=== PATIENT | female | born 1975 | race Caucasian/White ===

== ENCOUNTER 2023-02-18 06:53 | Outpatient (OUT) | payer BC, SELFPAY ==
[2023-02-18 07:15] LABS: Basophils Absolute Auto 0.1 10^3/uL (0.0-0.1); Basophils Percent Auto 1.1 % (0.2-2.0); Eosinophils Absolute Auto 0.2 10^3/uL (0.0-0.7); Eosinophils Percent Auto 4.2 % (0.9-7.0); Hematocrit 42.7 % (36.0-48.0); Hemoglobin 14.1 g/dL (12.0-16.0); Immature Granulocytes Abs Auto 0.01 10^3/uL (0.00-0.03); Immature Granulocytes Pct Auto 0.2 % (0.0-0.5); Lymphocytes Absolute Auto 2.5 10^3/uL (1.2-3.8); Lymphocytes Percent Auto 46.8 % (20.5-60.0); Mean Corpuscular Hemoglobin 30.4 pg (26.7-34.0); Mean Platelet Volume 10.3 fL (9.5-13.5); Monocytes Absolute Auto 0.5 10^3/uL (0.3-0.8); Monocytes Percent Auto 10.1 % (1.7-12.0); Neutrophils Percent Auto 37.6 % (43.0-75.0); Platelet Count 259 10^3/uL (150-450); Red Blood Count 4.64 10^6/uL (4.20-5.40); Red Cell Distribution Width 12.8 % (11.0-15.0); White Blood Count 5.2 10^3/uL (4.0-11.0)
[2023-02-18 09:13] LABS: Alanine Aminotransferase 26 U/L (14-59); Albumin Level 4.3 g/dL (3.4-5.0); Alkaline Phosphatase 61 U/L (46-116); Anion Gap 11.6; BUN Creatinine Ratio 16.7; Bilirubin Total 0.8 mg/dL (0.2-1.0); Calcium 9.5 mg/dL (8.5-10.1); Carbon Dioxide 27.6 mmol/L (21.0-32.0); Chloride 100 mmol/L (98-107); Chol HDL Ratio 3.8; Cholesterol 320 mg/dL (<=200); Estimated GFR (African America >60 (>=60); Estimated GFR (Non-African Ame >60 (>=60); Globulin 4.2 g/dL; Glucose 80 mg/dL (74-106); HDL Cholesterol 84 mg/dL (40-60); Sodium 135 mmol/L (136-145); Thyroid Stimulating Hormone 1.599 uIU/mL (0.358-3.740); Total Protein 8.5 g/dL (6.4-8.2); Triglycerides 100 mg/dL (<=150)
[2023-02-18 09:18] LABS: Aspartate Amino Transferase 39 U/L (15-37); Potassium 4.2 mmol/L (3.5-5.1)
[2023-02-18 09:24] LABS: Estimated Average Glucose 91 mg/dL; Glycohemoglobin A1C 4.8 % (4.5-6.2)
== END 2023-02-18 06:54 | disposition home or self-care (01) ==
LOC: LAB 06:58
PROVIDERS: PCP Internal Medicine; Visit Provider Obstetrics & Gynecology
DX: Z00.00 Encounter for general adult medical examination without abnormal findings (principal)
CPT/HCPCS: 36415; 80053; 80061; 83036; 84443; 85025

== ENCOUNTER 2023-08-12 21:07 | Outpatient (REF) | payer BC, SELFPAY ==
[2023-08-16 08:10] LABS: Age Gdln ACOG Testing Note (.); HPV Aptima Negative (Negative); IGP, Aptima HPV, rfx 16/18,45 Note (.)
== END 2023-08-12 21:08 | disposition home or self-care (01) ==
LOC: LAB 21:07
PROVIDERS: PCP Internal Medicine; Visit Provider Physician Assistant
DX: Z01.419 Encounter for gynecological examination (general) (routine) without abnormal findings (principal)
CPT/HCPCS: G0145

== ENCOUNTER 2023-09-06 14:10 | Outpatient (OUT) | payer BC, SELFPAY ==
--- NOTE | 2023-09-06 14:13 | MM_ITS ---
Patient Name: MIKE SY MR#: [id number] : 1975 Exam Date: 09/06/2023 Ordering Doctor: ANNIE Armenta . RADIOLOGY REPORT PROCEDURE: MM TOMOSYNTHESIS SCREENING BI COMPARISON: MG MAMM SCREEN 3D MATILDA CAD, 04/17/2021. MG MAMM SCREEN 3D MATILDA CAD, 06/22/2022. INDICATIONS: screening Calculator Name NCI Breast Cancer Risk Assessment Tool 5 Year Breast Cancer Risk 1.30% Lifetime Breast Cancer Risk 11.60% Personal Breast Cancer No Personal Ovarian Cancer No Treatments None Family Cancers None LOCATION: [facility] BREAST COMPOSITION: Extremely dense, which lowers the sensitivity of mammography. FINDINGS: DIAGNOSTIC CATEGORY 1--NEGATIVE. NO CHANGE FROM COMPARISON ASSESSMENT. Scattered benign-appearing lymph nodes are present. RIGHT BREAST: No significant suspicious finding. Linear scar marker lower inner quadrant LEFT BREAST: No significant suspicious finding. RECOMMENDATIONS: ROUTINE MAMMOGRAM AND CLINICAL EVALUATION IN 12 MONTHS. PLEASE NOTE: A NORMAL MAMMOGRAM DOES NOT EXCLUDE THE POSSIBILITY OF BREAST CANCER. A CLINICALLY SUSPICIOUS PALPABLE LUMP SHOULD BE BIOPSIED. Dictated by: Brandan Razo MD on 09/10/2023 at 07:36 Approved by: Brandan Razo MD on 09/10/2023 at 07:37
--- OUTSIDE RECORDS SUMMARY | 2023-09-06 14:17 | XMS_ITS | CCD ---
Author Organization [facility] Care Team Providers Care Digital Librarian Name Role Phone VIRY, DR HARRELL Primary Care Unavailable JOSE EDUARDO BOSS Attending Unavailable JOSE EDUARDO BOSS Admitting Unavailable ALEXANDRO COULTER Consulting Unavailable JOSE EDUARDO BOSS Consulting Unavailable ALEXANDRO COULTER Consulting Unavailable DAWNA LIZAMA Attending Unavailable DAWNA LIZAMA Admitting Unavailable VIRY, DR HARRELL Primary Care Unavailable DAWNA LIZAMA Consulting Unavailable ALEISHA ., DR MEYERS Attending Unavailabl e KARKOREY ., DR MEYERS Admitting Unavailabl e KARTATIANNAK ., DR MEYERS Consulting Unavailabl e VIRY, DR HARRELL Primary Care Unavailable ALEXANDRO COULTER Consulting Unavailable JOSE EDUARDO BOSS Admitting Unavailable BALL, DR HARRELL Primary Care Unavailable JOSE EDUARDO BOSS Attending Unavailable ALEISHA ., DR MEYERS Attending Unavailabl e KARASIK ., DR MEYERS Admitting Unavailabl e VIRY, DR HARRELL Primary Care Unavailable KARKOREY ., DR MEYERS Consulting Unavailronald KEMP, DR ALEENA Montoya Consulting Unavailable VIRY, DR HARRELL Primary Care Unavailable JOSE EDUARDO BOSS Attending Unavailable JOSE EDUARDO BOSS Admitting Unavailable JOSE EDUARDO BOSS Consulting Unavailable VIRIDIANA, DR ALEENA Montoya Consulting Unavailable JOSE EDUARDO BOSS Attending Unavailable VIRY, DR HARRELL Primary Care Unavailable JOSE EDUARDO BOSS Admitting Unavailable JOSE EDUARDO BOSS Consulting Unavailable VIRY, DR HARRELL Primary Care Unavailable JOSE EDUARDO BOSS Attending Unavailable VIRIDIANA, DR ALEENA Montoya Consulting Unavailable JOSE EDUARDO BOSS Admitting Unavailable JOSE EDUARDO BOSS Consulting Unavailable VIRIDIANA, DR ALEENA Montoya Consulting Unavailable DAWNA LIZAMA Attending Unavailable DAWNA LIZAMA Admitting Unavailable VIRY, DR HARRELL Primary Care Unavailable DAWNA LIZAMA Consulting Unavailable MADI PEREZ Attending Unavailable Problems Active Problems Problem Classification Problem Date Documented Date Episodic/Chronic Immunizations and screening for infectious disease (1 source) Encounter for screening for human papillomavirus (HPV); Translations: [ENC SCREENING HUMAN PAPILLOMAVIRUS] Onset: 06-23-2022 Episodic Other screening for suspected conditions (not mental disorders or infectious disease) (8 sources) Encounter for screening mammogram for malignant neoplasm of breast; Translations: [Encounter for screening for malignant neoplasm of cervix] Onset: 06-19-2022 Episodic Past or Other Problems Problem Classification Problem Date Documented Date Episodic/Chronic Fracture of lower limb (5 sources) Displaced fracture of body of right calcaneus, subsequent encounter for fracture with routine healing; Translations: [DSPL FX BODY RT CALCAN SUB FX RTN] Onset: 09-15-2021 Episodic Malaise and fatigue (1 source) Weakness; Translations: [WEAKNESS] Onset: 09-15-2021 Episodic Other connective tissue disease (5 sources) Pain in right foot; Translations: [PAIN IN RIGHT FOOT] Onset: 10-04-2021 Episodic Other connective tissue disease (1 source) Abnormal posture; Translations: [ABNORMAL POSTURE] Onset: 09-15-2021 Episodic Other nervous system disorders (1 source) Other abnormalities of gait and mobility; Translations: [OTHER ABNORMALITIES GAIT AND MOBILITY] Onset: 09-15-2021 Episodic Other nervous system disorders (1 source) Unspecified abnormalities of gait and mobility; Translations: [UNS ABNORMALITIES GAIT AND MOBILITY] Onset: 09-15-2021 Episodic Other non-traumatic joint disorders (4 sources) Pain in right ankle and joints of right foot; Translations: [PAIN IN RIGHT ANKLE] Onset: 03-28-2022 Episodic Residual codes; unclassified (4 sources) Other specified postprocedural states; Translations: [OTH SPECIFIED POSTPROCEDURAL STATES] Onset: 09-12-2021 Episodic Results Test Name Value Interpretation Reference Range Facil ity PAP ACOG PANEL 2: 30 to 65on 06-24-2022 . . Normal [facility] Comment on above: Result Comment: Perf ormed at: WB Performed By: #### [id number] #### [facility] [address] [address] [address] Armin Pereira Age Gdln ACOG Testing 30-65 Normal [facility] Comment on above: Performed By: #### [id number] #### [facility] [address] [place] [address] Dr. Armin Pereira DIAGNOSIS: Comment Normal [facility] Comment on above: Result Comment: NEGA TIVE FOR INTRAEPITHELIAL LESION OR MALIGNANCY. CELLULAR CHANGES ASSOCIATED WITH INFLAMMATION ARE PRESENT. Performed at: WB Performed By: #### [id number] #### [facility] [address] [place] [address] Dr. Armin Pereira HPV Aptima Negative Normal Negative [facility] Comment on above: Result Comment: This nucleic acid amplification test detects fourteen high-risk HPV types (16,18,31,33,35,39,45,51,52,56,58,59,66,68) without differentiation. Performed at: =G Performed By: #### [id number] #### [facility] [address] [place] [address] Dr. Armin Pereira HPV Genotype Reflex Comment Normal [facility] Comment on above: Result Comment: Crit eria not met, HPV Genotype not performed. Performed at: WB Performed By: #### [id number] #### [facility] [address] [place] [address] Dr. Armin Pereira Methodology: Comment Normal [facility] Comment on above: Result Comment: This liquid based ThinPrep(R) pap test was screened with the use of an image guided system. Performed at: WB Performed By: #### [id number] #### [facility] [address] [place] [address] Dr. Armin Pereira Note: Comment Normal [facility] Comment on above: Result Comment: The Pap smear is a screening test designed to aid in the detection of premalignant and malignant conditions of the uterine cervix. It is not a diagnostic procedure and should not be used as the sole means of detecting cervical cancer. Both false-positive and false-negative reports do occur. . Performed at: WB Performed By: #### [id number] #### [facility] [address] [place] [address] Dr. Armin Pereira Performed by: Comment Normal [facility] Comment on above: Result Comment: Samia Love Lpn Or Medical Assistant (ASCP) Performed at: WB Performed By: #### [id number] #### [facility] [address] [address] [address] Armin Pereira Specimen adequacy: Comment Normal [facility] Comment on above: Result Comment: Sati sfactory for evaluation. Performed at: WB Performed By: #### [id number] #### [facility] [address] [address] [address] Armin Pereira MG MAMM SCREEN 3D MATILDA CADon 06-22-2022 MG MAMM SCREEN 3D MATILDA CAD Patient: MIKE ARMENDARIZ Exam Date: 06/22/2022 : 1975 Gender:F Ordering : DR MIRA MORAES . Admission #: [id number] Family : Order #: [id number] CLICK HERE TO VIEW EXAM RADIOLOGY REPORT PROCEDURE: MAMMOGRAM SCREENING 3D BILATERAL CAD COMPARISON: MG MAMM SCREEN MATILDA W CAD, 04/15/2020. MG MAMM SCREEN MATILDA W CAD, 03/11/2019. MG MAMM MATILDA DIAG W CAD DIG, 01/30/2006. MG MAMM SCREEN 3D MATILDA CAD, 04/17/2021. INDICATIONS: Screening mammography Calculator Name NCI Breast Cancer Risk Assessment Tool 5 Year Breast Cancer Risk 1.30% Lifetime Breast Cancer Risk 11.80% Personal Breast Cancer No Personal Ovarian Cancer No Treatments None Family Cancers None LOCATION: [facility] BREAST COMPOSITION: Extremely dense, which lowers the sensitivity of mammography. FINDINGS: DIAGNOSTIC CATEGORY 1--NEGATIVE. RIGHT BREAST: No significant suspicious finding. No significant change has occurred. LEFT BREAST: No significant suspicious finding. No significant change has occurred. RECOMMENDATIONS: ROUTINE MAMMOGRAM AND CLINICAL EVALUATION IN 12 MONTHS. PLEASE NOTE: A NORMAL MAMMOGRAM DOES NOT EXCLUDE THE POSSIBILITY OF BREAST CANCER. A CLINICALLY SUSPICIOUS PALPABLE LUMP SHOULD BE BIOPSIED. Dictated by: Alexandro Coulter M.D. on 06/25/2022 at 09:11 Approved by: Alexandro Coulter M.D. on 06/25/2022 at 09:19 Normal [facility] Pathology Noteon 03-22-2020 Pathology Note [id number] D:127 Normal [facility] Formson 03-16-2020 Forms [id number] D:127 Normal [facility] Ambulatory Clinical Summaryo n 03-15-2020 Ambulatory Clinical Summary {[id number] Normal [facility] General Surgery Office/Clini c Noteon 03-15-2020 General Surgery Office/Clinic Note Chief Complaint mole removal HPI Staff Presents on self referral for mole removal. History of Present Illness 45 yo female with several month h/o changing lesion posterior neck, irregular, increased in size, no bleeding or pain; anterior chest with enlarging, erythematous lesion, bleeds, no pigmentation change; also seborrheic keratoses left flank and right upper back, irritated and sore, rub on clothing; increasing in size; no asa or NSAID use, no personal or fmhx of melanoma or skin cancer. Review of Systems PHQ Score Initial Depression Screen Score: 0 ROS - Provider Constitutional: no fever, no sweats, no weight loss. Eyes: no glasses, no blurred vision, no visual loss. ENMT: no dentures, no hoarseness, no swallowing difficulties, no hearing loss, no ear infection(s), no nose bleeds. Cardiovascular: normal blood pressure, no chest pain, regular heartbeat, no heart murmur. Respiratory: no shortness of breath, no cough, no asthma, no wheezing. Gastrointestinal: no nausea, no vomiting, no diarrhea, no constipation, no blood in stool, no change in bowel habits, no abdominal pain, no hepatitis. Genitourinary: no kidney stones, no urine infection, no dysuria. Musculoskeletal: no pain, no weakness. Skin: yes changing moles, no rash, yes skin lumps. Neurologic: no seizures, no epilepsy, no headache. Psychiatric: no emotional or psychiatric problem. Heme/Lymph: no bleeding problems, no anemia, no blood clots, no transfusions. Allergy/Immunologic: no swollen lymph nodes/glands, no IV drug abuse. Other: Additional ROS info: Except as noted in the above Review of Systems and in the History of Present Illness, all other systems have been reviewed and are negative or noncontributory. Physical Exam Vitals & Measurements T: 36.3 ?C (Tympanic) HR: 68(Peripheral) RR: 16 BP: 112/80 HT: 152.4 cm HT: 152.4 cm WT: 58.9 kg WT: 58.9 kg BMI: 25.36 HEENT: normal conjunctiva, sclera clear, no scleral icterus, EOM intact, PERRLA. oral mucosa moist without lesions Neck: trachea midline , no mass, symmetric, no thyromegaly or nodules. no adenopathy Respiratory: lungs CTA, respirations non labored. Cardiovascular: regular rate and rhythm, no murmur, , no pedal edema or varicosities. Lymphatic: no cervical adenopathy, no axillary adenopathy, Musculoskeletal: normalgait, digits and nails without infection, nodes, cyanosis, clubbing. Skin: no rashes, posterior neck with 4 mm irregular pigmented lesion, no ulceration, anterior chest with 3 mm raised, erythematous lesion, no active bleeding; left flank with 1.5 cm raised inflamed seborrheic keratosis, irregular pigmentation; right upper back with 1 cm raised, inflamed seborrheic keratosis; no ulcers, no subcutaneous nodules, induration. Psychiatric/Neuro: oriented to time, place, person, judgement normal, affect appropriate for age, insight intact, no focal deficits. Tests: review of old records completed, Discussed surgical options, risks, and possible complications with patient. Procedure patient brought to procedure room, placed in prone position; posterior neck, left flank and right upper back lesions prepped and draped, anesthetized with 1 % lidocaine, plain; neck lesion excised in elliptical fashion down to subcutaneous fat; total length 5 mm, closed with interrupted 5-0 nylon sutures; ebl < 2 ml; inflamed seborrheic keratoses on left flank and right upper back excised to dermis with scalpel, areas cauterized with electrocautery, tolerated well; patient placed in supine position, lesion anterior mid chest wall prepped and anesthetized with 1% plain lidocaine; area excised to subcutaneous tissue, closed with interrupted 5-0 nyon sutures; total length 4 mm; ebl < 1 ml, tolerated well. sterile dressings applied. Assessment/Plan 1. Neoplasm of uncertain behavior of skin of neck, (D48.5: Neoplasm of uncertain behavior of skin)Neoplasm of uncertain behavior of skin of chest area excised under local anesthesia; follow up in 1 week for suture removal and pathology report. 3. Seborrheic keratoses, inflamed (L82.0: Inflamed seborrheic keratosis) see # 1 Follow-up No qualifying data available Problem List/Past Medical History Ongoing Neoplasm of uncertain behavior of skin of chest Neoplasm of uncertain behavior of skin of neck Seborrheic keratoses, inflamed Historical No qualifying data Procedure/Surgical History Biopsy of breast, section, LOIS BSO - Total abdominal hysterectomy and bilateral salpingo-oophorectomy. Medications No active medications Allergies No Known Allergies No Known Medication Allergies Social History Alcohol - Denies Alcohol Use, 03/15/2020 Substance Abuse - Denies Substance Abuse, 03/15/2020 Tobacco Former smoker, quit more than 30 days ago Tobacco Use:., 03/15/2020 Family History Family history is negative [facility] Comment on above: Result Comment: Elec tronically Signed By: SHAUN SCOTT, Simone Cassidy\Date and Time Signed: 03/15/20 17:03 EDT Encounters Encounter Date Encounter Type Care Provider Facility Start: 08-12-2023 End: 08-12-2023 ambulatory MADI PEREZ Not Available Start: 06-22-2022 End: 06-23-[address] MIRA MORAES . Facility[facility] Start: 06-19-2022 End: 06-19-[address] MIRA MORAES . Facility[facility] Start: 03-28-2022 End: 03-29-2022 ambulatory ALEXANDRO COULTER Facility:[facility] Start: 01-25-2022 End: 01-26-[address] SHARRI BAIRES Facility:[facility] Start: 10-04-2021 End: 10-05-[address] ALEENA KEMP Facility:[facility] Start: 09-12-2021 End: 01-23-2022 ambulatory JOSE EDUARDO BOSS Facility:[facility] Start: 09-05-2021 End: 09-06-[address] SHARRI BAIRES Facility:[facility] Start: 08-15-2021 End: 08-16-[address] ALEENA KEMP Facility:[facility] Start: 08-01-2021 End: 08-02-[address] ALEENA KEMP Facility:[facility] Payers Date Payer Category Payer Unknown [id number] 2019 Unknown [id number] 1975 Unknown [id number] 2.16.84 [id number] 1975 Unknown [id number] 2.16.84 [id number] 1975 Unknown [id number] 2.16.84 [id number] 1975 Unknown [id number] 2.16.84 [id number] 1975 Unknown [id number] 2.16.84 [id number] 1975 Unknown [id number] 2.16.84 [id number] 1975 Unknown [id number] 2.16.84 [id number] 1975 Unknown [id number] 2.16.84 [id number] 1975 Unknown [id number] 2.16.84 [id number] 1975 Unknown [id number] 2.16.84 [id number] Clinical Note 03-29-2022 Note Date & Type Note Facility 03-29-2022 Note PROCEDURE: XR ANKLE RT MIN 3 VIEWS, XR FOOT RT MIN 3 VIEWS HISTORY: Pain of right ankle joint ; follow-up calcaneal fracture COMPARISON: XR foot right 01/25/2022 FINDINGS: BONES:Multiscrew repair of prior calcaneal fractures without evidence of hardware fracture or loosening. Stable sclerosis within calcaneus, with slightly visible remnant fracture line seen on the plantar view. Mild osteopenia throughout the foot. No acute fracture, dislocation, or significant degenerative joint disease. SOFT TISSUES:No visible soft tissue swelling. EFFUSION:None visible. OTHER: Negative. IMPRESSION: 1. Stable surgical changes without evidence of hardware failure or change in alignment. 2. Stable changes with most likely residual ongoing bone healing. Electronically authenticated by: ALEXANDRO COULTER Date: 2022-03-29 07:06 [facility] Clinical Note 03-29-2022 Note Date & Type Note Facility 03-29-2022 Note PROCEDURE: XR ANKLE RT MIN 3 VIEWS, XR FOOT RT MIN 3 VIEWS HISTORY: Pain of right ankle joint ; follow-up calcaneal fracture COMPARISON: XR foot right 01/25/2022 FINDINGS: BONES:Multiscrew repair of prior calcaneal fractures without evidence of hardware fracture or loosening. Stable sclerosis within calcaneus, with slightly visible remnant fracture line seen on the plantar view. Mild osteopenia throughout the foot. No acute fracture, dislocation, or significant degenerative joint disease. SOFT TISSUES:No visible soft tissue swelling. EFFUSION:None visible. OTHER: Negative. IMPRESSION: 1. Stable surgical changes without evidence of hardware failure or change in alignment. 2. Stable changes with most likely residual ongoing bone healing. Electronically authenticated by: ALEXANDRO COULTER Date: 2022-03-29 07:06 [facility] Clinical Note 01-26-2022 Note Date & Type Note Facility 01-26-2022 Note PROCEDURE: XR FOOT R T MIN 3 VIEWS HISTORY: Pain in right foot COMPARISON: XR foot right 10/04/2021 FINDINGS: BONES:Surgical repair of prior calcaneal fractures. Multiple screws; no evidence of hardware fracture or loosening. SOFT TISSUES:No visible soft tissue swelling. EFFUSION:None visible. OTHER: Negative. IMPRESSION: 1. Prior calcaneal repair without evidence of hardware failure. 2. No visible fracture lines. Suspect complete or near-complete healing. Electronically authenticated by: ALEXANDRO COULTER Date: 2022-01-26 10:57 [facility] Clinical Note 10-04-2021 Note Date & Type Note Facility 10-04-2021 Note PROCEDURE: XR FOOT R T MIN 3 VIEWS COMPARISON: 09/05/2021 HISTORY: Pain in right foot FINDINGS: BONES:Stable complex calcaneus fracture with internal fixation utilizing 5 screws. Increase in sclerosis with less evident fracture planes consistent with interval healing. Stable permeative pattern of the bones consistent with osteopenia. SOFT TISSUES:Negative. No visible soft tissue swelling. EFFUSION:None visible. OTHER: Negative. IMPRESSION: Stable healing complex calcaneal fracture with internal fixation Electronically authenticated by: ALEENA KEMP Date: 2021-10-04 09:40 [facility] Clinical Note 09-05-2021 Note Date & Type Note Facility 09-05-2021 Note PROCEDURE: XR FOOT R T MIN 3 VIEWS COMPARISON: 08/15/2021 HISTORY: Pain in right foot FINDINGS: BONES:Again demonstrated is a chronic complex calcaneus fracture with internal fixation utilizing 5 cannulated screws. Fracture planes are still evident, stable from the prior exam. Moderate cortical thinning and permeative pattern suggest underlying osteopenia SOFT TISSUES:Negative. No visible soft tissue swelling. EFFUSION:None visible. OTHER: Negative. IMPRESSION: Stable complex calcaneus fracture with internal fixation Electronically authenticated by: ALEENA KEMP Date: 2021-09-05 09:59 [facility] Clinical Note 08-15-2021 Note Date & Type Note Facility 08-15-2021 Note PROCEDURE: XR FOOT R T MIN 3 VIEWS COMPARISON: 08/01/2021 HISTORY: Pain in right foot FINDINGS: BONES:Again demonstrated is a chronic complex calcaneus fracture with internal fixation utilizing 5 screws. Continued sclerotic healing. No new fracture or dislocation. SOFT TISSUES:Negative. No visible soft tissue swelling. EFFUSION:None visible. OTHER: Negative. IMPRESSION: Stable chronic calcaneus fracture with internal fixation Electronically authenticated by: ALEENA KEMP Date: 2021-08-15 10:46 [facility] Clinical Note 08-01-2021 Note Date & Type Note Facility 08-01-2021 Note PROCEDURE: XR FOOT R T MIN 3 VIEWS COMPARISON: 07/17/2021 HISTORY: Pain in right foot FINDINGS: BONES:Continued healing of a complex calcaneal fracture with internal fixation utilizing 5 screws. No mechanical failure. No new fracture or dislocation. SOFT TISSUES:No soft tissue abnormality. Removal of surgical skin casa EFFUSION:None visible. OTHER: Negative. IMPRESSION: Continued healing of a calcaneus fracture with internal fixation Electronically authenticated by: ALEENA KEMP Date: 2021-08-01 12:36 [facility] Summary Purpose Family History No Family History Records FoundNo Family History Records FoundNo Family History Records Found Advance Directives No Advanced Directives Records FoundNo Advanced Directives Records FoundNo Advanced Directives Records Found Additional Source Comments INFORMATION SOURCE (unrecogn ized section and content) DATE CREATED AUTHOR 03/22/2020 [facility] DATE CREATED AUTHOR AUTHOR'S ORGANIZ ATION 07/25/2022 [facility] DATE CREATED AUTHOR AUTHOR'S ORGANIZ ATION 08/13/2023 [facility] FOR RECORDS PERTAINING TO PATIENTS WHO ARE OR HAVE BEEN ENROLLED IN A CHEMICAL DEPENDENCY/SUBSTANCEABUSE PROGRAM, SOME INFORMATION MAY BE OMITTED. This clinical summary was aggregated from multiple sources. Caution should be exercised in using it in the provision of clinical care. This summary normalizes information from multiple sources, and as a consequence, information in this document may materially change the coding, format and clinical context of patient data. In addition, data may be omitted in some cases. CLINICAL DECISIONS SHOULD BE BASED ON THE PRIMARY CLINICAL RECORDS. [facility] [employer] provides no warranty or guarantee of the accuracy or completeness of information in this document.
--- NOTE | 2023-09-06 15:06 | XR_ITS ---
The [address] [address] Patient Name: MIKE SY MRN: [id number] date: 1975 Sex: F Assigned Patient Location: [facility] Current Patient Location: [facility] Accession/Order Number: [id number] Exam Date: 09/06/2023 14:56 Report Date: 09/06/2023 15:25 At the request of: MADI PEREZ Procedure: XR DEXA axial skeleton EXAMINATION: XR DEXA axial skeleton HISTORY: Osteoporosis, post menopausal M81.0 COMPARISON: No relevant comparison available. TECHNIQUE: Dual-energy X-ray absorptiometry (DXA) was performed. FINDINGS: SPINE ANALYSIS: Average bone mineral density is 1.135 g/cm2. T-score (standard deviation relative to young adult mean): -0.5 . HIP ANALYSIS: Lowest bone mineral density is within the right femoral trochanter, 0.592 g/cm2. T-score (standard deviation relative to young adult mean): -2.2 . XR/XR DEXA axial skeleton IMPRESSION: World Qasim Organization Classification: Osteopenia - Moderate Fracture Risk Electronically authenticated by: JANETT CHI Date: 09/06/2023 15:25
== END 2023-09-06 14:11 | disposition home or self-care (01) ==
LOC: MAMMO 14:10
PROVIDERS: PCP Internal Medicine; Visit Provider Physician Assistant
DX: Z12.31 Encounter for screening mammogram for malignant neoplasm of breast (principal); M81.0 Age-related osteoporosis without current pathological fracture; M85.80 Other specified disorders of bone density and structure, unspecified site
CPT/HCPCS: 77063; 77067; 77080

== ENCOUNTER 2024-08-13 19:58 | Outpatient (REF) | payer BC, SELFPAY ==
--- OUTSIDE RECORDS SUMMARY | 2024-08-13 20:02 | XMS_ITS | CCD ---
Author Organization [facility] Care Team Providers Care Imagery Analyst Name Role Phone VIRY, DR HARRELL Primary Care Unavailable JOSE EDUARDO BOSS Attending Unavailable JOSE EDUARDO BOSS Admitting Unavailable ALEXANDRO COULTER Consulting Unavailable JOSE EDUARDO BOSS Consulting Unavailable ALEXANDRO COULTER Consulting Unavailable DAWNA LIZAMA Attending Unavailable DAWNA LIZAMA Admitting Unavailable VIRY, DR HARRELL Primary Care Unavailable DAWNA LIZAMA Consulting Unavailable ALEISHA ., DR MEYERS Attending Unavailabl e ALEISHA ., DR MEYERS Admitting Unavailabl e KARKOREY ., DR MEYERS Consulting Unavailabl e VIRY, DR HARRELL Primary Care Unavailable ALEXANDRO COULTER Consulting Unavailable JOSE EDUARDO BOSS Admitting Unavailable VIRY, DR HARRELL Primary Care Unavailable JOSE EDUARDO BOSS Attending Unavailable ALEISHA ., DR MEYERS Attending Unavailabl e KARASIK ., DR MEYERS Admitting Unavailabl e VIRY, DR HARRELL Primary Care Unavailable KARASIK ., DR MEYERS Consulting Unavailronald KEMP, DR [...] 30 to 65on 06-24-2022 . . Normal [facility] Comment on above: Result Comment: Perf ormed at: WB Performed By: #### [id number] #### [facility] [address] [place] [address] Dr. Armin Pereira Age Gdln ACOG Testing 30-65 Normal [facility] Comment on above: Performed By: #### [id number] #### [facility] [address] [place] [address] Dr. Armin Pereira DIAGNOSIS: Comment Normal [facility] Comment on above: Result Comment: NEGA TIVE FOR INTRAEPITHELIAL LESION OR MALIGNANCY. CELLULAR CHANGES ASSOCIATED WITH INFLAMMATION ARE PRESENT. Performed at: WB Performed By: #### [id number] #### [facility] [address] [place] [address] Dr. Armin Pereira HPV Aptima Negative Normal Negative [facility] Comment on above: Result Comment: This nucleic acid amplification test detects fourteen high-risk HPV types (16,18,31,33,35,39,45,51,52,56,58,59,66,68) without differentiation. Performed at: =G Performed By: #### [id number] #### [facility] [address] [place] [address] Dr. Armin Pereira HPV Genotype Reflex Comment Normal [facility] Comment on above: Result Comment: Crit eria not met, HPV Genotype not performed. Performed at: WB Performed By: #### [id number] #### [facility] [address] [place] [address] Dr. Armin Pereira Methodology: Comment Normal [facility] Comment on above: Result Comment: This liquid based ThinPrep(R) pap test was screened with the use of an image guided system. Performed at: WB Performed By: #### [id number] #### [facility] [address] [place] [address] Dr. Armin Pereira Note: Comment Normal [facility] Comment on above: Result Comment: The Pap smear is a screening test designed to aid in the detection of premalignant and malignant conditions of the uterine cervix. It is not a diagnostic procedure and should not be used as the sole means of detecting cervical cancer. Both false-positive and false-negative reports do occur. . Performed at: WB Performed By: #### [id number] #### [facility] [address] [place] [address] Dr. Armin Pereira Performed by: Comment Normal [facility] Comment on above: Result Comment: Samia Love Account Administrator (ASCP) Performed at: WB Performed By: #### [id number] #### [facility] [address] [address] [address] Armin Pereira Specimen adequacy: Comment Normal [facility] Comment on above: Result Comment: Sati sfactory for evaluation. Performed at: WB Performed By: #### 4 [id number] #### [facility] [address] [address] [address] Armin Pereira MG MAMM SCREEN 3D MATILDA CADon 06-22-2022 MG MAMM SCREEN 3D MATILDA CAD Patient: MIKE ARMENDARIZ Exam Date: 06/22/2022 : 1975 Gender:F Ordering : DR MIRA MORAES . Admission #: [id number] Family : Order #: [id number] CLICK HERE TO VIEW EXAM RADIOLOGY REPORT [...] Treatments None Family Cancers None LOCATION: [facility] BREAST COMPOSITION: Extremely dense, which lowers the [...] Coulter M.D. on 06/25/2022 at 09:19 Normal [facility] Pathology Noteon 03-22-2020 Pathology Note [id number]#1.00C D:127 Normal [facility] Formson 03-16-2020 Forms [id number]#1.00C D:127 Normal [facility] Ambulatory Clinical Summaryo n 03-15-2020 Ambulatory Clinical Summary {[id number] Normal [facility] General Surgery Office/Clini c Noteon 03-15-2020 General [...] 03/15/2020 Family History Family history is negative Normal [facility] Comment on above: Result Comment: Elec tronically [...] Facility:[facility] Payers Date Payer Category Payer Unknown [id number] 2019 Unknown [id number] 1975 Unknown [id number] 2.16.84 [id number] 1975 Unknown [id number] 2.16.84 [id number] 1975 Unknown [id number] 2.16.84 [id number] 1975 Unknown [id number] 2.16.84 [id number] 1975 Unknown [id number] 2.16.84 [id number] 1975 Unknown [id number] 2.16.84 [id number] 1975 Unknown [id number] 2.16.84 [id number] 1975 Unknown [id number] 2.16.84 [id number] 1975 Unknown [id number] 2.16.84 [id number] 1975 Unknown [id number] 2.16.84 [id number] Clinical Note 03-29-2022 Note Date & Type [...] by: ALEXANDRO COULTER Date: 2022-03-29 07:06 [facility] Clinical Note 03-29-2022 Note Date & Type [...] by: ALEXANDRO COULTER Date: 2022-03-29 07:06 [facility] Clinical Note 01-26-2022 Note Date & Type [...] by: ALEXANDRO COULTER Date: 2022-01-26 10:57 [facility] Clinical Note 10-04-2021 Note Date & Type [...] by: ALEENA KEMP Date: 2021-10-04 09:40 [facility] Clinical Note 09-05-2021 Note Date & Type [...] by: ALEENA KEMP Date: 2021-09-05 09:59 [facility] Clinical Note 08-15-2021 Note Date & Type [...] by: ALEENA KEMP Date: 2021-08-15 10:46 [facility] Clinical Note 08-01-2021 Note Date & Type [...] by: ALEENA KEMP Date: 2021-08-01 12:36 [facility] Summary Purpose Family History No Family History Records FoundNo Family History Records FoundNo Family History Records Found Advance Directives No Advanced Directives Records FoundNo Advanced Directives Records FoundNo Advanced Directives Records Found Additional Source Comments INFORMATION SOURCE (unrecogn ized section and content) DATE CREATED AUTHOR 03/22/2020 [facility] DATE CREATED AUTHOR AUTHOR'S ORGANIZ ATION 07/25/2022 [facility] DATE CREATED AUTHOR AUTHOR'S ORGANIZ ATION 08/13/2023 [facility] dical Specialists [facility] FOR RECORDS PERTAINING TO PATIENTS WHO [...] BE BASED ON THE PRIMARY CLINICAL RECORDS. [employer] [facility] provides no warranty or guarantee of the accuracy or completeness of information in this document.
[2024-08-19 11:08] LABS: Age Gdln ACOG Testing Note (.); HPV Aptima Negative (Negative); IGP, Aptima HPV, rfx 16/18,45 Note (.)
== END 2024-08-13 19:59 | disposition home or self-care (01) ==
LOC: LAB 19:58
PROVIDERS: PCP Internal Medicine; Visit Provider Physician Assistant
DX: Z01.419 Encounter for gynecological examination (general) (routine) without abnormal findings (principal)
CPT/HCPCS: 87624; 88175

== ENCOUNTER 2024-11-25 09:27 | Outpatient (OUT) | payer BC, SELFPAY ==
--- NOTE | 2024-11-25 09:29 | MM_ITS ---
Patient Name: MIKE SY MR#: [id number] : 1975 Exam Date: 11/25/2024 Ordering Doctor: DR ANNA WELCH . RADIOLOGY REPORT PROCEDURE: MM TOMOSYNTHESIS SCREENING BI COMPARISON: MM TOMOSYNTHESIS SCREENING BI, 09/06/2023. MG MAMM SCREEN 3D MATILDA CAD, 06/22/2022. MG MAMM SCREEN 3D MATILDA CAD, 04/17/2021. MG MAMM MATILDA DIAG W CAD DIG, 01/30/2006. INDICATIONS: Screening Calculator Name NCI Breast Cancer Risk Assessment Tool 5 Year Breast Cancer Risk 1.30% Lifetime Breast Cancer Risk 11.40% Personal Breast Cancer No Personal Ovarian Cancer No Treatments None Family Cancers None LOCATION: [facility] BREAST COMPOSITION: The breasts are heterogeneously dense,which may obscure small masses. FINDINGS: DIAGNOSTIC CATEGORY 1--NEGATIVE. RIGHT BREAST: No significant suspicious finding. LEFT BREAST: No significant suspicious finding. RECOMMENDATIONS: ROUTINE MAMMOGRAM AND CLINICAL EVALUATION IN 12 MONTHS. PLEASE NOTE: A NORMAL MAMMOGRAM DOES NOT EXCLUDE THE POSSIBILITY OF BREAST CANCER. A CLINICALLY SUSPICIOUS PALPABLE LUMP SHOULD BE BIOPSIED. Dictated by: Blair Jones DO on 11/25/2024 at 15:41 Approved by: Blair Jones DO on 11/25/2024 at 15:48
--- OUTSIDE RECORDS SUMMARY | 2024-11-25 09:29 | XMS_ITS | Encounter Summary ---
Author Organization [facility] Address [address] [place] [address] Care Team Providers Care Cake Froster Name Role Phone Hudson Contreras DO Primary Care Provider [phone] Encounter Details Date Type Department Care Team (Late st Contact Info) Description 09/06/2023 Clinisync Result Encounter [facility]S External Department Unsolicited Cammie Perez PA [address] [place] [address] Social History Tobacco Use Types Packs/Day Years Used Date Smoking Tobacco: Never Comments Unknown Sex and Gender Information Value Date Recorded Sex Assigned at Female 08/12/2023 1:54 PM EDT Legal Sex Female 8:14 PM EDT Gender Identity Female 08/12/2023 1:54 PM EDT Sexual Orientation Not on file documented as of this encounter Miscellaneous Notes * Result Encounter Note - Libra Webster LPN - 09/06/2023 3:30 PM EDT Pt notified! documented in this encounter Plan of Treatment Upcoming Encounters Date Type Department Care Team (Late st Contact Info) Description 08/16/2025 3:00 PM EDT Office Visit [facility] BCP OB [address] [place] [phone] Cammie Perez PA [address] [place] [address] documented as of this encounter Procedures Procedure Name Priority Date/Time Associated Diagnosis Comments XR DEXA AXIAL SKELETON 09/06/2023 3:25 PM EDT documented in this encounter Results * XR DEXA AXIAL SKELETON (09/06/2023 3:25 PM EDT) Anatomical Region Laterality Modality Other 09/06/2023 3:25 PM EDT Narrative 09/06/2023 3:27 PM EDT [place] [id number] XRay Report Signed Patient: MIKE BURCIAGA MR#: [id number] : 1975 Acct:[id number] Age/Sex: 48 / F ADM Date: 09/06/23 Loc: MAMMO Attending Dr: Cammie Perez Ordering Physician: Cammie Perez Date of Service: 09/06/23 Procedure(s): XR DEXA axial skeleton Accession Number(s): [id number] cc: Cammie Perez; Hudson Contreras D.O. [place] [id number] Patient Name: MIKE BURCIAGA MRN: [id number] date: 1975 Sex: F Assigned Patient Location: MAMMO Current Patient Location: [facility] Accession/Order Number: [id number] Exam Date: 09/06/2023 14:56 Report Date: 09/06/2023 15:25 At the request of: CAMMIE PEREZ Procedure: XR DEXA axial skeleton EXAMINATION: XR DEXA axial skeleton HISTORY: Osteoporosis, post menopausal M81.0 COMPARISON: No relevant comparison available. TECHNIQUE: Dual-energy X-ray absorptiometry (DXA) was performed. FINDINGS: SPINE ANALYSIS: Average bone mineral density is 1.135 g/cm2. T-score (standard deviation relative to young adult mean): -0.5 . HIP ANALYSIS: Lowest bone mineral density is within the right femoral trochanter, 0.592 g/cm2. T-score (standard deviation relative to young adult mean): -2.2 . XR/XR DEXA axial skeleton IMPRESSION: World Qasim Organization Classification: Osteopenia - Moderate Fracture Risk Electronically authenticated by: JANETT COULTER Date: 09/06/2023 15:25 Dictated By: Janett Coulter M.D. Signed By: 09/06/23 1527 DD/ 1525 TD/TT: Alarm Installer: Procedure Note Radiology, Radiologist, - 09/06/2023 [place] [address] XRay Report Signed Patient: MIKE BURCIAGA AMR#: [id number] : 1975Acct:[id number] Age/Sex: 48 / FADM Date: 09/06/23 Loc: MAMMO Attending Dr: Cammie Perez Ordering Physician: Cammie Perez Date of Service: 09/06/23 Procedure(s): XR DEXA axial skeleton Accession Number(s): [id number] cc: Cammie Perez; Hudson Contreras D.O. The [address] [address] Patient Name: MIKE BURCIAGA MRN: [id number] date: 1975 Sex: F Assigned Patient Location: [facility] Current Patient Location: [facility] Accession/Order Number: [id number] Exam Date: 09/06/2023 14:56 Report Date: 09/06/2023 15:25 At the request of: CAMMIE PEREZ Procedure: XR DEXA axial skeleton EXAMINATION: XR DEXA axial skeleton HISTORY: Osteoporosis, post menopausal M81.0 COMPARISON: No relevant comparison available. TECHNIQUE: Dual-energy X-ray absorptiometry (DXA) was performed. FINDINGS: SPINE ANALYSIS: Average bone mineral density is 1.135 g/cm2. T-score (standard deviation relative to young adult mean): -0.5 . HIP ANALYSIS: Lowest bone mineral density is within the right femoral trochanter, 0.592 g/cm2. T-score (standard deviation relative to young adult mean): -2.2 . XR/XR DEXA axial skeleton IMPRESSION: World [place] Organization Classification: Osteopenia - Moderate FractureRisk Electronically authenticated by: JANETT COULTER Date: 09/06/2023 15:25 Dictated By: Jaentt Coulter M.D. Signed By:09/06/23 1527 DD/ 1525 TD/TT: Alarm Installer: us Cammie [facility] Final Result documented in this encounter Visit Diagnoses Not on filedocumented in this encounter Care Teams Cake Froster Relationship Specialty Start Date End Date Hudson Contreras DO PCP - General 08/12/23 documented as of this encounter
--- OUTSIDE RECORDS SUMMARY | 2024-11-25 09:29 | XMS_ITS | Encounter Summary ---
Author Organization [facility] Address [address] [place] [address] Care Team Providers Care Medical Transcriber Name Role Phone Hudson Contreras DO Primary Care Provider [phone] Encounter Details Date Type Department Care Team (Late st Contact Info) Description 09/10/2023 Clinisync Result Encounter NOMS External Department Unsolicited Cammie Armenta PA [address] [facility] [place], [facility] Social History Tobacco Use Types Packs/Day Years Used Date Smoking Tobacco: Never Comments Unknown Sex and Gender Information Value Date Recorded Sex Assigned at Female 08/12/2023 1:54 PM EDT Legal Sex Female 8:14 PM EDT Gender Identity Female 08/12/2023 1:54 PM EDT Sexual Orientation Not on file documented as of this encounter Plan of Treatment Upcoming Encounters Date Type Department Care Team (Late st Contact Info) Description 08/16/2025 3:00 PM EDT Office Visit [facility] BCP OB [address] [facility] [place] [phone] Cammie Armenta PA [address] [facility] [address] [place], [facility] documented as of this encounter Procedures Procedure Name Priority Date/Time Associated Diagnosis Comments MM TOMOSYNTHESIS SCREENING BI 09/10/2023 7:37 AM EDT documented in this encounter Results * MM TOMOSYNTHESIS SCREENING BI (09/10/2023 7:37 AM EDT) Anatomical Region Laterality Modality Other 09/10/2023 7:37 AM EDT Narrative 09/10/2023 7:38 AM EDT [address] [address] Mammography Report Signed Patient: MIKE BURCIAGA MR#: [id number] : 1975 Acct:[id number] Age/Sex: 48 / F ADM Date: 09/06/23 Loc: MAMMO Attending Dr: Cammie Armenta Ordering Physician: Cammie Armenta Results: Date of Service: 09/06/23 Follow Up: Procedure(s): MM tomosynthesis screening BI Accession Number(s): [id number] cc: Cammie Armenta; Hudson Contreras D.O. Patient Name: MIKE BURCIAGA MR#: [id number] : 1975 Exam Date: 09/06/2023 Ordering Doctor: ANNIE Armenta . RADIOLOGY REPORT PROCEDURE: MM TOMOSYNTHESIS SCREENING BI COMPARISON: MG MAMM SCREEN 3D MATILDA CAD, 04/17/2021. MG MAMM SCREEN 3D MATILDA CAD, 06/22/2022. INDICATIONS: screening Calculator Name NCI Breast Cancer Risk Assessment Tool 5 Year Breast Cancer Risk 1.30% Lifetime Breast Cancer Risk 11.60% Personal Breast Cancer No Personal Ovarian Cancer No Treatments None Family Cancers None LOCATION: [facility] BREAST COMPOSITION: Extremely dense, which lowers the sensitivity of mammography. FINDINGS: DIAGNOSTIC CATEGORY 1--NEGATIVE. NO CHANGE FROM COMPARISON ASSESSMENT. Scattered benign-appearing lymph nodes are present. RIGHT BREAST: No significant suspicious finding. Linear scar marker lower inner quadrant LEFT BREAST: No significant suspicious finding. RECOMMENDATIONS: ROUTINE MAMMOGRAM AND CLINICAL EVALUATION IN 12 MONTHS. PLEASE NOTE: A NORMAL MAMMOGRAM DOES NOT EXCLUDE THE POSSIBILITY OF BREAST CANCER. A CLINICALLY SUSPICIOUS PALPABLE LUMP SHOULD BE BIOPSIED. Dictated by: Brandan Razo MD on 09/10/2023 at 07:36 Approved by: Brandan Razo MD on 09/10/2023 at 07:37 Dictated By: Brandan Razo M.D. Signed By: 09/10/23 0738 DD/ 0737 TD/TT: Switch Maker: Procedure Note Radiology, Radiologist, MD - 09/10/2023 The [place] [id number] Mammography Report Signed Patient: MIKE BURCIAGA AMR#: [id number] : 1975Acct:[id number] Age/Sex: 48 / FADM Date: 09/06/23 Loc: MAMMO Attending Dr: Cammie Armenta Ordering Physician: Cammie ArmentaResults: Date of Service: 09/06/23Follow Up: Procedure(s): MM tomosynthesis screening BI Accession Number(s): [id number] cc: Cammie Armenta; Hudson Contreras D.O. Patient Name: MIKE BURCIAGA MR#: [id number] : 1975 Exam Date: 09/06/2023 Ordering Doctor: ANNIE Armenta . RADIOLOGY REPORT PROCEDURE: MM TOMOSYNTHESIS SCREENING BI COMPARISON: MG MAMM SCREEN 3D MATILDA CAD, 04/17/2021. MG MAMM SCREEN 3DBIL CAD, 06/22/2022. INDICATIONS: screening Calculator Name NCI Breast Cancer Risk Assessment Tool 5 Year Breast Cancer Risk 1.30% Lifetime Breast Cancer Risk 11.60% Personal Breast Cancer No Personal Ovarian Cancer No Treatments None Family Cancers None LOCATION: [facility] BREAST COMPOSITION: Extremely dense, which lowers the sensitivity of mammography. FINDINGS: DIAGNOSTIC CATEGORY 1--NEGATIVE. NO CHANGE FROM COMPARISON ASSESSMENT. Scattered benign-appearing lymph nodes are present. RIGHT BREAST: No significant suspicious finding. Linear scar markerlower inner quadrant LEFT BREAST: No significant suspicious finding. RECOMMENDATIONS: ROUTINE MAMMOGRAM AND CLINICAL EVALUATION IN 12 MONTHS. PLEASE NOTE: A NORMAL MAMMOGRAM DOES NOT EXCLUDE THE POSSIBILITY OFBREAST CANCER. A CLINICALLY SUSPICIOUS PALPABLE LUMP SHOULD BE BIOPSIED. Dictated by: Brandan Razo MD on 09/10/2023 at 07:36 Approved by: Brandan Razo MD on 09/10/2023 at 07:37 Dictated By: Brandan Razo M.D. Signed By:09/10/2338 DD/ TD/TT: Switch Maker: us Cammie [facility] Final Result documented in this encounter Visit Diagnoses Not on filedocumented in this encounter Care Teams Medical Transcriber Relationship Specialty Start Date End Date Hudson Contreras DO PCP - General 08/12/23 documented as of this encounter
--- OUTSIDE RECORDS SUMMARY | 2024-11-25 09:29 | XMS_ITS | Encounter Summary ---
Author Organization [facility] Address [address] [place] [address] Care Team Providers Care Regulatory Product Manager Name Role Phone Hudson Contreras DO Primary Care Provider [phone] Encounter Details Date Type Department Care Team (Late st Contact Info) Description 08/20/2024 Orders Only [facility] [address] [place] [address] Arabella Eastman LPN [address] [place] [address] Social History Tobacco Use Types Packs/Day Years Used Date Smoking Tobacco: Never Comments No Sex and Gender Information Value Date Recorded Sex Assigned at Female 08/12/2023 1:54 PM EDT Legal Sex Female 8:14 PM EDT Gender Identity Female 08/12/2023 1:54 PM EDT Sexual Orientation Not on file documented as of this encounter Plan of Treatment Upcoming Encounters Date Type Department Care Team (Late st Contact Info) Description 08/16/2025 3:00 PM EDT Office Visit [facility] BCP OB [address] [place] [address] Cammie Armenta PA [address] [place] [address] documented as of this encounter Procedures Procedure Name Priority Date/Time Associated Diagnosis Comments PAP SMEAR Routine 08/13/2024 12:00 AM EDT documented in this encounter Results * Pap Smear (08/13/2024 12:00 AM EDT) Swab Cervical swab / Unknown us Gino Nurse [facility] Bcp Ob LAB CYTOLOGY ORDERABLES Final Result EXTERNAL LAB documented in this encounter Visit Diagnoses Not on filedocumented in this encounter Care Teams Regulatory Product Manager Relationship Specialty Start Date End Date Hudson Contreras DO PCP - General 08/12/23 documented as of this encounter
--- OUTSIDE RECORDS SUMMARY | 2024-11-25 09:51 | XMS_ITS | CCD ---
Author Organization [facility] Care Team Providers Care Driller Portable Name Role Phone VIRY, DR HARRELL Primary [...] KARKOREY ., DR MEYERS Admitting Unavailabl e VIRY, DR HARRELL Primary Care Unavailable KARKOREY ., DR MEYERS Consulting Unavailabl tana KEMP, DR ALEENA Montoya Consulting Unavailable VIRY, [...] Primary Care Unavailable DAWNA LIZAMA Consulting Unavailable Hudson Contreras MD Primary Care Provider CAMMIE PEREZ Attending Unavailable Medications Current Medications Medication Drug Class(es) Dates Sig (Normalized) Sig (Original) aspirin 325 mg oral tablet (3 sources) Platelet Aggregation Inhibitor, Nonsteroidal Anti-inflammatory Drug take 1 tablet by mouth in the morning aspirin 325 MG tablet Take 325 mg by mouth in the morning. Active calcium carbonate 625 mg / cholecalciferol 125 unt oral tablet (3 sources) Vitamin D Calcium Carb-Cholecalcife rol 250-3.125 MG-MCG tablet Take 1 tablet by mouth in the morning and 1 tablet at noon and 1 tablet in the evening. Active ibuprofen 600 mg oral tablet (3 sources) Nonsteroidal Anti-inflammatory Drug take 1 tablet by mouth every six hours as needed ibuprofen 600 MG tablet Take 600 mg by mouth every 6 (six) hours if needed Active Problems Active Problems Problem Classification Problem Date Documented Date Episodic/Chronic Immunizations and screening for infectious disease (1 source) Encounter for screening for human papillomavirus (HPV); Translations: [ENC SCREENING HUMAN PAPILLOMAVIRUS] Onset: 06-23-2022 Episodic Other screening for suspected conditions (not mental disorders or infectious disease) (10 sources) Encounter for screening mammogram for malignant [...] Name Value Interpretation Reference Range Facil ity Cytology Cervical or vaginal smear or scraping studyOrdered By: Prema Watson on 08-12-2023 [facility] PAP ACOG PANEL 2: 30 to 65on 06-24-2022 . . Normal [facility] Comment on above: Result Comment: Perf ormed at: WB Performed By: #### [id number] #### [facility] [address] [address] [address] Armin Pereira Age Gdln ACOG Testing 30-65 [facility] Comment on above: Performed By: #### [id number] #### [facility] [address] [place] [address] Dr. Armin Pereira DIAGNOSIS: Comment Normal [facility] Comment on above: Result Comment: NEGA TIVE FOR INTRAEPITHELIAL LESION OR MALIGNANCY. CELLULAR CHANGES ASSOCIATED WITH INFLAMMATION ARE PRESENT. Performed at: WB Performed By: #### [id number] #### [facility] [address] [address] [address] Armin Pereira HPV Aptima Negative Normal Negative [facility] Comment on above: Result Comment: This nucleic acid amplification test detects fourteen high-risk HPV types (16,18,31,33,35,39,45,51,52,56,58,59,66,68) without differentiation. Performed at: =G Performed By: #### [id number] #### [facility] [address] [address] [address] Armin Pereira HPV Genotype Reflex Comment Normal [facility] Comment on above: Result Comment: Crit eria not met, HPV Genotype not performed. Performed at: WB Performed By: #### [id number] #### [facility] [address] [address] [address] Armin Pereira Methodology: Comment Normal [facility] Comment on above: Result Comment: This liquid based ThinPrep(R) pap test was screened with the use of an image guided system. Performed at: WB Performed By: #### 4 [id number] #### [facility] [address] [place] [address] Dr. Armin Pereira Note: Comment Normal [facility] Comment on above: Result Comment: The Pap smear is a screening test designed to aid in the detection of premalignant and malignant conditions of the uterine cervix. It is not a diagnostic procedure and should not be used as the sole means of detecting cervical cancer. Both false-positive and false-negative reports do occur. . Performed at: WB Performed By: #### [id number] #### [facility] [address] [address] [address] Armin Pereira Performed by: Comment Normal [facility] Comment on above: Result Comment: Samia Love Gizzard Puller (ASCP) Performed at: WB Performed By: #### 4 [id number] #### [facility] [address] [place] [address] Dr. Armin Pereira Specimen adequacy: Comment Normal [facility] Comment on above: Result Comment: Sati sfactory for evaluation. Performed at: WB Performed By: #### [id number] #### [facility] [address] [place] [address] Dr. Armin Pereira MG MAMM SCREEN 3D MATILDA CADon 06-22-2022 MG MAMM SCREEN 3D MATILDA CAD Patient: MALIA ARMENDARIZ Exam Date: 06/22/2022 : 1975 Gender:F Ordering : DR MIRA MORAES . Admission #: [id number] Family : Order #: [id number] CLICK HERE TO VIEW EXAM RADIOLOGY REPORT [...] Treatments None Family Cancers None LOCATION: [facility] BREAST COMPOSITION: Extremely dense, which lowers [...] Coulter M.D. on 06/25/2022 at 09:19 Normal [facility] Pathology Noteon 03-22-2020 Pathology Note [id number] 0CD:127 Normal [facility] 03-16-2020 Forms [id number] 0CD:127 Normal [facility] Ambulatory Clinical Summaryo n 03-15-2020 Ambulatory Clinical Summary {[id number]}CD:[id number] Normal [facility] General Surgery Office/Clini c Noteon 03-15-2020 General [...] Family History Family history is negative Normal [facility] Comment on above: Result Comment: Elec tronically Signed By: SHAUN SCOTT, Simone Cassidy\Date and Time Signed: 03/15/20 17:03 EDT Vital Signs Date Time Vital Sign Value Performing Clinician Deepali hernandez 08-13-2024 15:130400 Body mass index (BMI) [Ratio] 28.9 kg/m2 Cammie VALENCIA Work Phone: [facility] 08-13-2024 15:13-0400 Body weight 67.13 kg Cammie VALENCIA Work Phone: [facility] 08-13-2024 15:13-0400 Diastolic blood pressure 78 mm[Hg] Cammie Perez PA Work Phone: [facility] 08-13-2024 15:13-0400 Systolic blood pressure 124 mm[Hg] Cammie VALENCIA Work Phone: [facility] Encounters Encounter Date Encounter Type Care Provider Facility Start: 08-13-2024 End: 08-13-2024 ambulatory CAMMIE PEREZ Not Available Start: 08-13-2024 End: 08-13-2024 Patient encounter procedure Cammie VALENCIA Work Phone: [facility] Start: 08-13-2024 End: 08-13-2024 Periodic preventive med est patient 40-64yrs Cammie VALENCIA Work Phone: [facility] Comment on above: Well woman exam with routine gynecological exam; Breast cancer screening by mammogram Start: 08-13-2024 End: 08-13-2024 Bamboo flowsheet Cammie VAELNCIA Work Phone: [facility] Start: 08-13-2024 End: 08-13-2024 Bamboo flowsheet Cammie Perez PA Work Phone: [facility] Start: 06-22-2022 End: 06-23-[address] MIRA MORAES . Facility:[facility] Start: 06-19-2022 End: 06-19-[address] MIRA MORAES . Facility:[facility] Start: 03-28-2022 End: 03-29-2022 ambulatory ALEXANDRO COULTER Facility:[facility] Start: 01-25-2022 End: 01-26-[address] HUDSON CONTERRAS Facility:[facility] Start: 10-04-2021 End: 10-05-[address] ALEENA KEMP Facility:[facility] Start: 09-12-2021 End: 01-23-2022 ambulatory JOSE EDUARDO BOSS Facility:[facility] Start: 09-05-2021 End: 09-06-[address] HUDSON CONTRERAS Facility:[facility] Start: 08-15-2021 End: 08-16-[address] ALEENA KEMP Facility:[facility] Start: 08-01-2021 End: 08-02-[address] ALEENA KEMP Facility:[facility] Procedures Date Procedure Procedure Detail Performing Clinician Start: 08-12-2023 Cytp cerv/vag auto t hin layer prep mnl screen Cammie VALENCAI Work Phone: Plan of Treatment Date Care Activity Detail Author Start: 08-13-2024 End: 10-13-2025 MG Breast - bilateral Screening Bilateral screening mammogram Imaging Routine Breast cancer screening by mammogram Expected: 08/13/2024 (Approximate), Expires: 10/13/2025 [facility] [employer] Work Phone: Comment on above: Expected: 08/13/2024 (Approximate), Expires: 10/13/2025 THIN PREP TIS PAP AN D HR HPV DNA THIN PREP TIS PAP AND HR HPV DNA Pathology and Cytology Routine Well woman exam with routine gynecological exam Ordered: 08/13/2024 [facility] [employer] Comment on above: Ordered: 08/13/2024 Payers Date Payer Category Payer [facility] [id number] 2022 Unknown [id number] 2019 Unknown [id number] 1975 Unknown [id number]. 593 1975 Unknown [id number] [id number]. 593 1975 Unknown [id number] [id number]. 593 1975 Unknown [id number] [id number]. 593 1975 Unknown [id number] [id number]. 593 1975 Unknown [id number] [id number]. 593 1975 Unknown [id number] [id number]. 593 1975 Unknown [id number] [id number]. 593 1975 Unknown [id number] [id number]. 593 1975 Unknown [id number]. 1259 Social History Date Type Detail Facility Start: 08-08-2023 Tobacco smoking stat [facility] Never smoked tobacco [facility] Start: 08-08-2023 End: 08-13-2024 History of Social function [facility] Start: 08-08-2023 End: 08-13-2024 Tobacco use panel [facility] Start: 1975 Sex assigned at Female [facility] Start: 08-12-2023 Gender identity Identifies as female gender (finding) [facility] History of Present illness Narrative 08-13-2024 ANNIE Wong - 08/13/2024 3:00 PM EDT Note Date & Type Note Facility 08-13-2024 History of Presen t illness Narrative Reason for Appointment: Patient ID: Malia Sy is a 49 y.o. female who presents for Gynecologic Exam Patient presents today for Annual Exam. MEDICATIONS Current Outpatient Medications Medication Instructions aspirin 325 mg, Oral, Daily RT Calcium Carb-Cholecalciferol 250-3.125 MG-MCG tablet 1 tablet, Oral, 3 times daily ibuprofen 600 mg, Oral, Every 6 hours PRN ALLERGIES No Known Allergies PROBLEMS Active Ambulatory Problems Diagnosis Date Noted No Active Ambulatory Problems Resolved Ambulatory Problems Diagnosis Date Noted No Resolved Ambulatory Problems Past Medical History: Diagnosis Date History of hysterectomy Hot flashes Migraines (CMS/HCC) Murmur Night sweats Sleeping difficulty Tension headache HISTORY PAST MEDICAL HISTORY SOCIAL HISTORY Past Medical History: Diagnosis Date History of hysterectomy Hot flashes Migraines (CMS/HCC) Murmur Night sweats Sleeping difficulty Tension headache Social History Tobacco Use Smoking status: Never Smokeless tobacco: Not on file Substance Use Topics Alcohol use: Not on file Drug use: Not on file FAMILY HISTORY Family History Problem Relation Name Age of Onset Mental illness Mother Hypertension Father Heart disease Father Mental illness Father Heart disease Maternal Grandfather Diabetes Paternal Grandmother Mental illness Paternal Grandmother SURGICAL HISTORY Past Surgical History: Procedure Laterality Date SECTION, LOW TRANSVERSE HYSTERECTOMY REVIEW OF SYSTEMS Review of Systems: Review of Systems Constitutional: Negative. HENT: Negative. Eyes: Negative. Respiratory: Negative. Cardiovascular: Negative. Gastrointestinal: Negative. Genitourinary: Negative. Musculoskeletal: Negative. Skin: Negative. Neurological: Negative. All other systems reviewed and are negative. Hematological: Negative. Endocrine: Negative. Allergic/Immunologic: Negative. OBJECTIVE Objective: Physical Exam Constitutional: Appearance: Normal appearance. Genitourinary: Right Adnexa: no mass present. Cervix is absent. Uterus is absent. Breasts: Breasts are soft. Right: Normal. Left: Normal. HENT: Head: Normocephalic. Nose: Nose normal. Mouth/Throat: Mouth: Mucous membranes are moist. Cardiovascular: Rate and Rhythm: Normal rate. Pulmonary: Effort: Pulmonary effort is normal. Abdominal: General: Bowel sounds are normal. Palpations: Abdomen is soft. Musculoskeletal: General: Normal range of motion. Cervical back: Normal range of motion. Neurological: General: No focal deficit present. Mental Status: She is alert. Skin: General: Skin is warm and dry. Psychiatric: Mood and Affect: Mood normal. Vitals and nursing note reviewed. Exam conducted with a head greenskeeper present. Vitals: Estimated body mass index is 27.34 kg/m as calculated from the following: Height as of 06/19/22: 5'. Weight as of 06/19/22: 140 lb. BP: No LMP recorded. ASSESSMENT & PLAN ICD-10-CM 1. Well woman exam with routine gynecological exam Z01.419 THIN PREP TIS PAP AND HR HPV DNA CANCELED: THIN PREP TIS PAP AND HR HPV DNA 2. Breast cancer screening by mammogram Z12.31 Bilateral screening mammogram Bilateral screening mammogram Annual: Patient presents today for an annual exam. Patient states she is doing well and has no complaints. Pap was obtained without difficulty and patient given mammogram order to have scheduled/obtained. Orders Placed This Encounter Procedures Bilateral screening mammogram Follow Up: Patient is to return in one year for annual unless needed otherwise. Documented by Magy Mckinney MA on behalf of: ANNIE Wong documented in this encounter [facility] Clinical Note 03-29-2022 Note Date & [...] authenticated by: ALEXANDRO COULTER Date: 2022-03-29 07:06 [facility] Clinical Note 03-29-2022 Note Date & Type [...] by: ALEXANDRO COULTER Date: 2022-03-29 07:06 [facility] Clinical Note 01-26-2022 Note Date & [...] by: ALEXANDRO COULTER Date: 2022-01-26 10:57 [facility] Clinical Note 10-04-2021 Note Date & [...] by: ALEENA KEMP Date: 2021-10-04 09:40 [facility] Clinical Note 09-05-2021 Note Date & [...] by: ALEENA KEMP Date: 2021-09-05 09:59 [facility] Clinical Note 08-15-2021 Note Date & [...] authenticated by: ALEENA KEMP Date: 2021-08-15 10:46 [facility] Clinical Note 08-01-2021 Note Date & Type [...] authenticated by: ALEENA KEMP Date: 2021-08-01 12:36 [facility] Evaluation note Note Date & Type Note Facility Evaluation note Diagnosis Well woman exam with routine gynecological exam Routine gynecological examination Breast cancer screening by mammogram documented in this encounter [facility] Summary Purpose Family History No Family History Records FoundNo Family History Records FoundNo Family History Records Found Advance Directives No Advanced Directives Records FoundNo Advanced Directives Records FoundNo Advanced Directives Records Found Additional Source Comments INFORMATION SOURCE (unrecogn ized section and content) DATE CREATED AUTHOR 03/22/2020 [facility] DATE CREATED AUTHOR AUTHOR'S ORGANIZ ATION 07/25/2022 [facility] DATE CREATED AUTHOR AUTHOR'S ORGANIZ ATION 08/16/2024 [facility] [employer] Care Teams (unrecognized sec tion and content) Driller Portable Relationship Specialty Start Date End Date Hudson Contreras MD [address] [place] [address] PCP - General 08/12/23 Driller Portable Relationship Specialty Start Date End Date Hudson Contreras MD [address] [place] [address] PCP - General 08/12/23 Reason for Visit (unrecogniz ed section and content) Reason Comments Gynecologic Exam FOR RECORDS PERTAINING TO PATIENTS WHO ARE [...] BE BASED ON THE PRIMARY CLINICAL RECORDS. [facility]. provides no warranty or guarantee of the accuracy or completeness of information in this document.
== END 2024-11-25 09:28 | disposition home or self-care (01) ==
PROVIDERS: PCP Internal Medicine; Visit Provider Obstetrics & Gynecology
DX: Z12.31 Encounter for screening mammogram for malignant neoplasm of breast (principal)
CPT/HCPCS: 77063; 77067